=== PATIENT | female | born 1975 | race Caucasian/White ===

== ENCOUNTER 2019-08-12 06:04 | Observation (INO) | payer OTHER, MEDICARE ==
[2019-08-08 10:06] VITALS: BP 126/78
[2019-08-08 10:10] LABS: BASOPHILS % (AUTO) 0.9 % (0.0-5.0); EOSINOPHILS % (AUTO) 3.3 % (0.0-8.0); HEMATOCRIT 44.4 % (36-48); LYMPHOCYTES % (AUTO) 26.2 % (21.0-51.0); MEAN CORPUSCULAR HEMOGLOBIN 30.2 pg (27.0-33.0); MONOCYTES % (AUTO) 4.7 % (3.0-13.0); NEUTROPHILS % (AUTO) 64.9 % (40.0-77.0); NUCLEATED RED BLOOD CELLS 0.1 % (0.0-0.19); PLATELET COUNT (AUTO) 226 K/uL (130-400); RED BLOOD CELL COUNT(AUTO) 4.99 MIL/uL (4.00-5.50); RED CELL DISTRIBUTION WIDTH 15.1 % (11.0-15.5); WHITE BLOOD COUNT (AUTO) 8.3 K/uL (4.8-10.8)
[2019-08-08 10:16] LABS: APPEARANCE,URINE Clear (CLEAR); BILIRUBIN,URINE Negative (NEGATIVE); COLOR,URINE Yellow (YELLOW); GLUCOSE, URINE (UA) Negative (NEGATIVE); KETONES,URINE Negative (NEGATIVE); LEUKOCYTE ESTERASE ,URINE Negative (NEGATIVE); NITRATE,URINE Negative (NEGATIVE); OCCULT BLOOD,URINE Negative (NEGATIVE); PH,URINE 5.5 (5.0-8.0); PROTEIN,URINE Negative (NEGATIVE)
[2019-08-08 10:18] LABS: CREATININE 0.8 mg/dL (0.5-1.5); POTASSIUM 3.8 mmol/L (3.5-5.1)
[2019-08-08 10:22] LABS: INR 0.96 (0.85-1.15); PARTIAL THROMBOPLASTIN TIME 37.6 SEC (26.3-35.5); PROTHROMBIN TIME 10.1 SEC (9.6-11.6)
[2019-08-12] VITALS (15 sets, daily range): BP systolic 95–121; BP diastolic 54–74
[~2019-08-12] VITALS: Ht 165.1 cm; Wt 96.3 kg
[~2019-08-12 06:04] MED LIST: ALBU90AE IH; AMIT50TA3 PO; ASPI-1181 PO; ATOR40TA71 PO; CARI6CAP PO; CHOL400C9 PO; CLOR15TA2 PO; DIPH25CA53 PO; ESOM40CA54 PO; FLUT1BLS IH; IBUP-2070 PO; INSLAN SQ; ISOS30TA6 PO; LIRA0.6P SQ; METF-446 PO; METO-408 PO; MULT-1077 PO; ONDA4TAB10 PO; PRAM0.122 PO; PRAZ2CAP2 PO; RIZA10TA41 PO; TOPI50TA24 PO
[2019-08-12] MEDS ORDERED: SODIUM CHLORIDE 0.9% 1000ML 1,000 ML IV ONE (06:36)
[2019-08-12] MEDS ORDERED: NITROGLYCERIN 5 MG/ML 10 ML VIAL IV ONE (08:28)
[2019-08-12] MEDS ORDERED: BIVALIRUDIN 250 MG/VIAL IV ONE (08:28)
[2019-08-12] MEDS ORDERED: IOHEXOL 350 MG/ML 100ML INFUS..BTL IV ONE (08:28)
[2019-08-12] MEDS ORDERED: LIDOCAINE HCL-MPF 2% 5ML VIAL ONE (08:28)
[2019-08-12] MEDS ORDERED: IOHEXOL-350 50ML VIAL IV ONE ×2 (08:28→09:50)
[2019-08-12] MEDS ORDERED: MIDAZOLAM HCL 1 MG/ML 2ML VIAL ONE (08:58)
[2019-08-12] MEDS ORDERED: FENTANYL CITRATE PF 50 MCG/1 ML 2ML VIAL ONE (08:58)
[2019-08-12] MEDS ORDERED: LIDOCAINE HCL 1% 20 ML VIAL ONE (09:17)
[2019-08-12] MEDS ORDERED: TICAGRELOR 90 MG TABLET ONE (09:40)
[2019-08-12] MEDS ORDERED: ONDANSETRON ODT 4 MG TAB PO PRN (10:00)
[2019-08-12] MEDS ORDERED: DEXTROSE 50%-WATER 50 ML DISP.SYRIN IV PRN (10:00)
[2019-08-12] MEDS ORDERED: SODIUM CHLORIDE 0.9% 1000ML 1,000 ML IV SCH (10:00)
[2019-08-12] MEDS ORDERED: ALBUTEROL SULFATE 0.083% 2.5 MG/3 ML INH IH PRN (10:00)
[2019-08-12] MEDS ORDERED: METOPROLOL TARTRATE 1 MG/ML 5ML VIAL IV PRN (10:00)
[2019-08-12] MEDS ORDERED: NITROGLYCERIN 0.4 MG SL TAB SL PRN (10:00)
[2019-08-12] MEDS ORDERED: IBUPROFEN 600 MG TABLET PO PRN (10:00)
[2019-08-12] MEDS ORDERED: GLUCAGON 1MG KIT 1 MG ML IM PRN (10:00)
[2019-08-12] MEDS ORDERED: ACETAMINOPHEN-CODEINE 300/30MG TAB PO PRN (10:00)
[2019-08-12] MEDS ORDERED: RIZATRIPTAN BENZOATE 10 MG PO PRN (10:43)
--- NOTE | 2019-08-12 11:45 | NUR ---
PAIN PT COMPLAINING OF PAIN TO PUNCTURE SITE RIGHT GROIN. SITE SOFT, DRESSING DRY AND INTACT, NO OOZING NO HEMATOMA NOTED. PER PT, SHE CANNOT TAKE TYLENOL, SHE ONLY TAKES TRAMADOL FOR PAIN AT HOME. NOTIFIED DR. YESY [employer] CUTTING DEPARTMENT. PER ALEENA, PT MAY TAKE TRAMADOL 50 MG PO X1.
[2019-08-12] MEDS ORDERED: TRAMADOL HCL 50 MG TABLET PO SCH (12:00)
--- NOTE | 2019-08-12 12:30 | NUR ---
DIET PT TOLERATED DIET WELL, FAMILY ASSISTED PT.
--- NOTE | 2019-08-12 16:45 | NUR ---
AT 1645: REPORT GIVEN TO CHARLOTTE WHITE. PT STABLE, RT GROIN DRESSING D/I, NO C/O PAIN, NO ACTIVE BLEEDING OR HEMATOMA. PT ABLE TO AMBULATE, AND VOID. TOLERATED FLUIDS AND FOOD WELL. PT TRANSFERRED BY WHEELCHAIR, BOYFRIEND AND PERSONAL BELONGINGS AT BEDSIDE ON ARRIVAL TO ROOM.
[2019-08-12] MEDS: METFORMIN HCL 500 MG TABLET PO SCH (17:00)
[2019-08-12] MEDS: CLORAZEPATE DIPOTASSIUM 15 MG PO SCH ×2 (17:00→20:54)
--- NOTE | 2019-08-12 17:53 | NUR ---
PT ARRIVED TO ROOM 217VIA WHEEL CHAIR FROM DAY PATIENT POST LEFT HEART CATH WITH STENT TO PROXIMAL LAD. PT WITH NO C/O PAIN VOICED. RIGHT GROIN NOTED WITH DRESSING D/I, NO BLEEDING, AREA SOFT, NO HEMATOMA NOTED. PULSES STRONG DISTALLY. VS STABLE. WILL CONT TO MONITOR. PT IS PCCU STATUS.
[2019-08-12] MEDS: INSULIN HUMULIN R 100 UNIT/ML 3ML SQ SCH ×2 (18:21→21:03)
[2019-08-12] MEDS: ALBUTEROL SULFATE 0.083% 2.5 MG/3 ML INH IH SCH (19:47)
--- NOTE | 2019-08-12 20:00 | NUR ---
ASSESSMENT PT RESTING QUIETLY AND COMFORTABLY. RIGHT GROIN SOFT, NO BRUISING NOTED, NO OOZING, DRESSING C/D/I. PT AAO COOPERATIVE. ASSESSMENT COMPLETED, SEE FLOW SHEET.
[2019-08-12] MEDS: BUDESONIDE 0.5 MG/2 ML INH IH SCH (20:29)
[2019-08-12] MEDS: TICAGRELOR 90 MG TABLET PO SCH (20:39)
[2019-08-12] MEDS ORDERED: AMITRIPTYLINE HCL 25 MG TABLET PO SCH (21:00)
[2019-08-12] MEDS ORDERED: ATORVASTATIN CALCIUM 40 MG TABLET PO SCH (21:00)
[2019-08-12] MEDS ORDERED: PRAZOSIN HCL 2 MG PO SCH (21:00)
[2019-08-12] MEDS ORDERED: CARIPRAZINE HYDROCHLORIDE 6 MG PO SCH (21:00)
[2019-08-12] MEDS ORDERED: PRAMIPEXOLE DI-HCL 0.25 MG TABLET PO SCH (21:00)
[2019-08-12] MEDS ORDERED: DIPHENHYDRAMINE HCL 25 MG CAPSULE PO SCH (21:00)
[2019-08-12] MEDS: TOPIRAMATE 25 MG TABLET PO SCH (21:57)
[2019-08-13] MEDS: ALBUTEROL SULFATE 0.083% 2.5 MG/3 ML INH IH SCH ×2 (00:14→06:34)
[2019-08-13 03:49] VITALS: BP 124/73
[2019-08-13 04:42] LABS: HEMATOCRIT 37.2 % (36-48); MEAN CORPUSCULAR HEMOGLOBIN 29.8 pg (27.0-33.0); MEAN CORPUSCULAR HGB CONC 34.1 g/dL (32.0-36.0); MEAN CORPUSCULAR VOLUME 87.3 fL (79-99); PLATELET COUNT (AUTO) 187 K/uL (130-400); RED BLOOD CELL COUNT(AUTO) 4.27 MIL/uL (4.00-5.50); RED CELL DISTRIBUTION WIDTH 14.9 % (11.0-15.5); WHITE BLOOD COUNT (AUTO) 6.2 K/uL (4.8-10.8)
[2019-08-13 04:49] LABS: CREATININE 0.9 mg/dL (0.5-1.5); POTASSIUM 3.5 mmol/L (3.5-5.1)
[2019-08-13] MEDS: INSULIN HUMULIN R 100 UNIT/ML 3ML SQ SCH (06:22)
[2019-08-13] MEDS: BUDESONIDE 0.5 MG/2 ML INH IH SCH (06:34)
[2019-08-13 07:00] VITALS: BP 132/76
[2019-08-13] MEDS ORDERED: TICA90TA PO (07:29)
[2019-08-13] MEDS: METFORMIN HCL 500 MG TABLET PO SCH (08:00)
[2019-08-13] MEDS ORDERED: ASPIRIN 81MG TAB.CHEW PO SCH (09:00)
[2019-08-13] MEDS ORDERED: INSULIN GLARGINE 100 UNITS/ML 10 ML VIAL SQ SCH (09:00)
[2019-08-13] MEDS ORDERED: CHOLECALCIFEROL 400 UNIT PO SCH (09:00)
[2019-08-13] MEDS ORDERED: MULTIVITAMIN TABLET PO SCH (09:00)
[2019-08-13] MEDS ORDERED: PANTOPRAZOLE SODIUM 40 MG TABLET.DR PO SCH (09:00)
[2019-08-13] MEDS ORDERED: **HM**(Metoprolol Succinate 12.5 MG PO SCH (09:00)
[2019-08-13] MEDS ORDERED: LIRAGLUTIDE 1.2 MG SQ SCH (09:00)
[2019-08-13] MEDS ORDERED: ASPIRIN 81 MG EC TAB PO SCH (09:00)
[2019-08-13] MEDS ORDERED: ISOSORBIDE MONO 30MG TAB SR PO SCH (09:00)
[2019-08-13] MEDS: TOPIRAMATE 25 MG TABLET PO SCH (09:22)
[2019-08-13] MEDS: TICAGRELOR 90 MG TABLET PO SCH (09:22)
== END 2019-08-13 11:25 | disposition home or self-care (01) ==
LOC: DAH 06:04 → 2CH 06:05 → DAH 10:00 → 2BH 08-13 06:49
PROVIDERS: ADMIT Internal Medicine Cardiovascular Disease; ATTEND Internal Medicine Cardiovascular Disease
DX: I20.0 Unstable angina (principal); I11.0 Hypertensive heart disease with heart failure; I50.32 Chronic diastolic (congestive) heart failure; E78.5 Hyperlipidemia, unspecified; E11.51 Type 2 diabetes mellitus with diabetic peripheral angiopathy without gangrene; E11.65 Type 2 diabetes mellitus with hyperglycemia; K21.9 Gastro-esophageal reflux disease without esophagitis; G43.909 Migraine, unspecified, not intractable, without status migrainosus; J45.909 Unspecified asthma, uncomplicated; Z90.89 Acquired absence of other organs; Z79.899 Other long term (current) drug therapy
CPT/HCPCS: 36415 ×3; 71045; 80048 ×2; 80061; 81003; 82948 ×5; 83880; 85025; 85027; 85610; 85730; 93005; 93458; 94640 ×5; 94664; 96372 ×2; A4215; A4221; A4222; A4223 ×3; A4606; A6260; C1760; C1769; C1874; C1887; C1894 ×3; C9600; G0378 ×24; J0583; J1644; J1815 ×3; J3010; J3490 ×2; J7030; Q0163; Q9965; Q9967 ×3; 99156; 99157; J2250